=== PATIENT | female | born 1960 | race Caucasian/White ===

== ENCOUNTER 2020-04-06 13:41 | Emergency (ER) | payer BC, OTHER ==
[~2020-04-06] VITALS: Ht 162.6 cm; Wt 72.7 kg
[2020-04-06 13:48] VITALS: BP 137/89
[2020-04-06] MEDS ORDERED: ONDA4TAB6 PO (14:34)
== END 2020-04-06 14:44 | disposition home or self-care (01) ==
LOC: ER 13:43
DX: R10.10 Upper abdominal pain, unspecified (principal); Z88.0 Allergy status to penicillin; Z88.5 Allergy status to narcotic agent; Z79.899 Other long term (current) drug therapy
CPT/HCPCS: 93005; 99283

== ENCOUNTER 2020-04-10 13:04 | Emergency (ER) | payer BC, OTHER ==
[~2020-04-10] VITALS: Ht 162.6 cm; Wt 80.0 kg
[~2020-04-10 13:04] MED LIST: ONDA4TAB6 PO
[2020-04-10] MEDS ORDERED: normal saline 1000ML IV soln IVB ONE (13:15)
[2020-04-10] MEDS ORDERED: ondansetron/PF 4mg/2ml inj IV ONE (13:15)
[2020-04-10 13:51] LABS: BASOPHILS # (AUTO) 0.1 X10'3 (0-0.2); EOSINOPHILS # (AUTO) 0.1 X10'3 (0-0.9); EOSINOPHILS % (AUTO) 1.3 % (0-6); HEMATOCRIT 37.8 % (35.0-45.0); HEMOGLOBIN 12.5 g/dl (12.0-16.0); LYMPHOCYTES # (AUTO) 1.5 X10'3 (1.1-4.8); LYMPHOCYTES % (AUTO) 15.2 % (21-51); MEAN CORPUSCULAR HEMOGLOBIN 30.1 PG (27.0-31.0); MEAN CORPUSCULAR VOLUME 91.1 FL (78-98); MEAN PLATELET VOLUME 9.1 FL (7.4-10.4); MONOCYTES # (AUTO) 0.7 X10'3 (0-0.9); MONOCYTES % (AUTO) 6.9 % (2-12); NEUTROPHILS # (AUTO) 7.4 X10'3 (1.8-7.7); NEUTROPHILS % (AUTO) 75.6 % (42-75); PLATELET COUNT 293 X10'3 (140-440); RED BLOOD COUNT 4.15 X10'6 (4.20-5.60); RED CELL DISTRIBUTION WIDTH 14.6 % (11.5-14.5); WHITE BLOOD COUNT 9.7 X10'3 (4.5-11.0)
[2020-04-10 14:05] LABS: ALANINE AMINOTRANSFERASE 144 U/L (12-78); ALBUMIN 3.5 G/DL (3.4-5.0); ALBUMIN/GLOBULIN RATIO 0.8 (1.1-1.5); ALKALINE PHOSPHATASE 209 IU/L (46-116); ANION GAP 10 (8-16); ASPARTATE AMINO TRANSFERASE 41 U/L (10-37); BILIRUBIN,TOTAL 0.6 MG/DL (0.1-1.0); BLOOD UREA NITROGEN 17 MG/DL (7-18); BUN/CREATININE RATIO 19.8 (6.6-38.0); CALCIUM 9.4 MG/DL (8.5-10.1); CHLORIDE 108 MMOL/L (99-107); CREATININE 0.86 MG/DL (0.40-0.90); GLUCOSE 91 MG/DL (70-104); LIPASE 199 U/L (73-393); POTASSIUM 3.8 MMOL/L (3.5-5.1); SODIUM 142 MMOL/L (135-145); TOTAL CARBON DIOXIDE 24.5 MMOL/L (24-32); TOTAL PROTEIN 7.8 G/DL (6.4-8.2); eGFR 68 ML/MIN
[2020-04-10 15:00] LABS: CLARITY,URINE SLIGHTLY CLOUDY (Clear); COLOR,URINE YELLOW (Yellow); GLUCOSE, URINE NEGATIVE (Neg); KETONES,URINE NEGATIVE (Neg); LEUKOCYTE ESTERASE ,URINE SMALL (Neg); NITRITES, URINE NEGATIVE (Neg); OCCULT BLOOD,URINE NEGATIVE (Neg); PROTEIN,URINE NEGATIVE (Neg); UROBILINOGEN,URINE 0.2 E.U/dL (0.2-1.0)
[2020-04-10 15:01] LABS: UA COLLECTION TYPE CLN CATCH MIDSTREAM
[2020-04-10 15:05] LABS: MUCUS STRANDS MODERATE /LPF (Neg)
[2020-04-10] MEDS ORDERED: HYDROcodone/acetaminophen 5mg/325mg tablet PO ONE (15:05)
[2020-04-10] MEDS ORDERED: ketorolac trometh. 30mg/ml inj. IV ONE (15:05)
[2020-04-10 15:06] LABS: BACTERIA,URINE FEW /HPF (Neg); SQUAMOUS EPITHELIAL CELL,UR MODERATE /LPF (FEW)
[2020-04-10 15:07] LABS: RBC,URINE 0-2 /HPF (0-2)
[2020-04-10] MEDS ORDERED: ONDA4TAB6 PO (15:12)
[2020-04-10] MEDS ORDERED: HYDR-4383 PO (15:12)
[2020-04-10 15:18] VITALS: BP 138/77
[2020-04-10] MEDS ORDERED: TRAM50TA2 PO (15:21)
[2020-04-11] MEDS ORDERED: PARO10TA85 PO (16:25)
[2020-04-11] MEDS ORDERED: LORA-268 PO (16:25)
== END 2020-04-10 15:23 | disposition home or self-care (01) ==
LOC: ER 13:04
DX: K85.10 Biliary acute pancreatitis without necrosis or infection (principal); Z88.0 Allergy status to penicillin; Z88.5 Allergy status to narcotic agent; Z79.899 Other long term (current) drug therapy
CPT/HCPCS: 36415; 74176; 76700; 80053; 81001; 83690; 85025; 87077; 87088; 87186; 99285; J7030; 96360

== ENCOUNTER 2020-04-11 10:05 | Emergency (ER) | payer BC, OTHER ==
[~2020-04-11] VITALS: Ht 162.6 cm; Wt 75.0 kg
[~2020-04-11 10:05] MED LIST changes: +HYDR-4383 PO; +TRAM50TA2 PO
[2020-04-11 10:19] VITALS: BP 119/61
[2020-04-11] MEDS ORDERED: LORA-268 PO (16:25)
[2020-04-11] MEDS ORDERED: PARO10TA85 PO (16:25)
[2020-04-18] MEDS ORDERED: ondansetron/PF 4mg/2ml inj IV PRN (08:25)
[2020-04-18] MEDS ORDERED: proCHLORperazine 10 MG/2 ml inj IV PRN (08:25)
[2020-04-18] MEDS ORDERED: morphine 2 MG/ML inj. syringe IV PRN (08:25)
[2020-04-18] MEDS ORDERED: morphine 4 MG/ML inj SYRINge IV PRN (08:25)
[2020-04-18] MEDS ORDERED: meperidine/PF 25mg/ml syringe IV PRN ×3 (08:25)
[2020-04-18] MEDS ORDERED: ringers solution, lacted 1,000 ML IV SCH (08:25)
== END 2020-04-11 11:01 | disposition home or self-care (01) ==
LOC: ER 10:06
DX: Z20.828 Contact with and (suspected) exposure to other viral communicable diseases (principal); Z88.0 Allergy status to penicillin; Z88.5 Allergy status to narcotic agent; Z59.0 Homelessness; Z79.899 Other long term (current) drug therapy
CPT/HCPCS: 36415; 99281

== ENCOUNTER 2020-04-19 12:10 | Day surgery (SDC) | payer BC, OTHER ==
[2020-04-19] VITALS (10 sets, daily range): BP systolic 106–131; BP diastolic 58–81
[~2020-04-19] VITALS: Ht 162.6 cm; Wt 80.0 kg
[~2020-04-19 12:10] MED LIST changes: +BUPIVAcaine/PF 2.5 mg/ml (0.25%) 30ml vial ONE; -HYDR-4383 PO; +INDOCYANINE GREEN 25 MG/10 ML VIAL IV ONE; +LIDOcaine 1% 30ml preserv. free vial ONE; +LORA-268 PO; -ONDA4TAB6 PO; +PARO10TA85 PO; -TRAM50TA2 PO; +ceFAZolin 2gm in dextrose, iso 50 ML IV ONE; +famotidine 20mg tablet PO ONE; +ringers solution, lacted 1,000 ML IV SCH
[2020-04-19] MEDS ORDERED: aprepitant 40mg capsule PO ONE (16:15)
[2020-04-19] MEDS ORDERED: BUPIVAcaine/PF 2.5 mg/ml (0.25%) 30ml vial ONE (16:17)
[2020-04-19] MEDS ORDERED: ondansetron/PF 4mg/2ml inj ONE (16:22)
[2020-04-19] MEDS ORDERED: sevoflurane 250ml liquid IH ONE (16:22)
[2020-04-19] MEDS ORDERED: neostigmine methylsulfate 1 MG/ML 10ml vial ONE (16:22)
[2020-04-19] MEDS ORDERED: glycopyrrolate 0.2mg/ml inj ONE (16:22)
[2020-04-19] MEDS ORDERED: midazolam 2 mg/2 ml injection ONE (16:33)
[2020-04-19] MEDS ORDERED: fentaNYL /PF 50mcg/ml 5ml ampule ONE (16:33)
[2020-04-19] MEDS ORDERED: dexamethasone sod phosphate 4mg/ml inj. ONE (16:41)
[2020-04-19] MEDS ORDERED: rocuronium 10mg/ml inj IV ONE (16:42)
[2020-04-19] MEDS ORDERED: LIDOcaine 2% (20mg/ml) 5ml vial ONE (16:42)
[2020-04-19] MEDS ORDERED: propofol inj 20 ML IV ONE (16:42)
[2020-04-19] MEDS ORDERED: 0.9 % SODIUM CHLORIDE 10 ML VIAL ONE (16:43)
[2020-04-19] MEDS ORDERED: ePHEDrine 50MG/ML INJ. ONE (16:44)
[2020-04-19] MEDS ORDERED: INDOCYANINE GREEN 25 MG/10 ML VIAL IV ONE (16:59)
[2020-04-19] MEDS ORDERED: proCHLORperazine 10 MG/2 ml inj IV PRN (17:15)
[2020-04-19] MEDS ORDERED: meperidine/PF 25mg/ml syringe IV PRN (17:15)
[2020-04-19] MEDS ORDERED: labetalol 20mg/4ml (5mg/ml) syringe IV PRN (17:15)
[2020-04-19] MEDS ORDERED: acetaminophen 1,000mg/100ml IV 100 ML IV PRN (17:15)
[2020-04-19] MEDS ORDERED: ondansetron/PF 4mg/2ml inj IV PRN (17:15)
[2020-04-19] MEDS ORDERED: HYDROmorphone/PF 0.2 MG/ML SYRINGE IV PRN ×2 (17:15)
[2020-04-19] MEDS ORDERED: morphine 2 MG/ML inj. syringe IV PRN (17:15)
[2020-04-19] MEDS ORDERED: morphine 4 MG/ML inj SYRINge IV PRN (17:15)
[2020-04-19] MEDS ORDERED: hydrALAZINE 20mg/ml inj. IV PRN (17:15)
[2020-04-19] MEDS ORDERED: ringers solution, lacted 1,000 ML IV SCH (17:15)
[2020-04-19] MEDS ORDERED: albuterol 60 PUFF/8GM Inhaler IH ONE (17:40)
--- NOTE | 2020-04-19 18:05 | NUR ---
Received from OR via lacey, accompanied by Anesthesiologist Isac and report given by Anesthesiolgist. VS stable, mask on at 10L sats 98%, lap sites present CDI. Pt states no pain and no nausea but MD requests to hang bottle of Tylenol regardless to help with recovery. 20G left hand LR IVF at 100cc/hr.
--- NOTE | 2020-04-19 19:59 | NUR ---
Pt discharged to vehicle by wheelchair without incident after IV DC'd. Abdomen dressings remain CDI, pt and verbalzied understanding of DC instructions and already picked up pain meds. all belongings returned to patient and she stable and in agreement of discharge. Knows to follow up.
== END 2020-04-19 19:59 | disposition home or self-care (01) ==
LOC: PAS 12:10
PROVIDERS: ATTEND Surgery
DX: K80.10 Calculus of gallbladder with chronic cholecystitis without obstruction (principal); F41.9 Anxiety disorder, unspecified; F32.9 Major depressive disorder, single episode, unspecified; Z88.5 Allergy status to narcotic agent; Z88.0 Allergy status to penicillin; Z87.19 Personal history of other diseases of the digestive system; Z79.899 Other long term (current) drug therapy
CPT/HCPCS: 47562; 82948; J0131; J0694; J1100; J2001; J2250; J2405; J2704; J2710; J3010; J3490; J7120; J8501; S2900; A4215; A4618; A7000

== ENCOUNTER 2023-05-14 11:21 | Emergency (ER) | payer BC, OTHER ==
[~2023-05-14] VITALS: Ht 162.6 cm; Wt 85.4 kg
[~2023-05-14 11:21] MED LIST changes: -BUPIVAcaine/PF 2.5 mg/ml (0.25%) 30ml vial ONE; -INDOCYANINE GREEN 25 MG/10 ML VIAL IV ONE; -LIDOcaine 1% 30ml preserv. free vial ONE; +PARO-153 PO; -PARO10TA85 PO; -ceFAZolin 2gm in dextrose, iso 50 ML IV ONE; -famotidine 20mg tablet PO ONE; -ringers solution, lacted 1,000 ML IV SCH
[2023-05-14 13:32] LABS: BASOPHILS % (AUTO) 0.6 % (0-1); EOSINOPHILS # (AUTO) 0.1 X10'3 (0-0.9); EOSINOPHILS % (AUTO) 1.2 % (0-6); HEMATOCRIT 38.2 % (35.0-45.0); HEMOGLOBIN 12.3 g/dl (12.0-16.0); LYMPHOCYTES # (AUTO) 1.8 X10'3 (1.1-4.8); LYMPHOCYTES % (AUTO) 24.5 % (21-51); MEAN CORPUSCULAR HEMOGLOBIN 28.5 PG (27.0-31.0); MEAN CORPUSCULAR HGB CONC 32.2 g/dL (33.0-36.5); MEAN CORPUSCULAR VOLUME 88.5 FL (78-98); MEAN PLATELET VOLUME 9.4 FL (7.4-10.4); MONOCYTES # (AUTO) 0.4 X10'3 (0-0.9); NEUTROPHILS % (AUTO) 67.7 % (42-75); PLATELET COUNT 347 X10'3 (140-440); RED BLOOD COUNT 4.32 X10'6 (4.20-5.60); RED CELL DISTRIBUTION WIDTH 14.7 % (11.5-14.5); WHITE BLOOD COUNT 7.3 X10'3 (4.5-11.0)
[2023-05-14 13:40] LABS: ANION GAP 5 (8-16); BLOOD UREA NITROGEN 13 MG/DL (7-18); BUN/CREATININE RATIO 15.1 (10.0-20.0); CHLORIDE 106 MMOL/L (99-107); CREATININE 0.86 MG/DL (0.40-0.90); GLUCOSE 103 MG/DL (70-104); POTASSIUM 3.8 MMOL/L (3.5-5.1); SODIUM 139 MMOL/L (135-145); TOTAL CARBON DIOXIDE 28.1 MMOL/L (24-32)
[2023-05-14 13:41] LABS: ALANINE AMINOTRANSFERASE 24 U/L (12-78); ALBUMIN 3.4 G/DL (3.4-5.0); ALBUMIN/GLOBULIN RATIO 0.9 (1.1-1.5); ALKALINE PHOSPHATASE 109 IU/L (46-116); ASPARTATE AMINO TRANSFERASE 16 U/L (10-37); BILIRUBIN,TOTAL 0.5 MG/DL (0.1-1.0); TOTAL PROTEIN 7.3 G/DL (6.4-8.2); eCRCL 59 ML/MIN; eGFR 67 ML/MIN
[2023-05-14 13:48] LABS: PRO BRAIN NATRIURETIC PEPTIDE 60 PG/ML (0-125)
[2023-05-14 19:10] VITALS: BP 124/86; PULSE 70; TEMP 98.2; O2SAT 98
[2023-05-14 19:17] VITALS: RESP 18
[2023-05-14 21:46] LABS: BILIRUBIN,URINE NEGATIVE (Neg); CLARITY,URINE SLIGHTLY CLOUDY (Clear); COLOR,URINE YELLOW (Yellow); GLUCOSE, URINE NEGATIVE (Neg); KETONES,URINE NEGATIVE (Neg); LEUKOCYTE ESTERASE ,URINE NEGATIVE (Neg); NITRITES, URINE NEGATIVE (Neg); OCCULT BLOOD,URINE NEGATIVE (Neg); PH,URINE 5.5 (4.8-8.0); PROTEIN,URINE NEGATIVE (Neg); UROBILINOGEN,URINE 0.2 E.U/dL (0.2-1.0)
[2023-05-14 21:47] LABS: UA COLLECTION TYPE CLN CATCH MIDSTREAM
[2023-05-14 21:52] LABS: MUCUS STRANDS MANY /LPF (Neg); SQUAMOUS EPITHELIAL CELL,UR MANY /LPF (FEW)
[2023-05-14 21:54] LABS: CAL OXALATE CRYSTALS 3+ /HPF (NEGATIVE)
[2023-05-14 21:55] LABS: BACTERIA,URINE 1+ /HPF (Neg); RBC,URINE 0-2 /HPF (0-2); TRANSITIONAL EPI CELLS,URINE FEW /HPF; WBC,URINE 0-4 /HPF (0-4)
== END 2023-05-14 19:11 | disposition home or self-care (01) ==
LOC: ER 11:22
DX: R07.9 Chest pain, unspecified (principal)
CPT/HCPCS: 36415; 71045; 80053; 81001; 83880; 84484; 85025; 93005; 99285